=== PATIENT | male | born 1995 | race Caucasian/White ===

== ENCOUNTER 2018-12-02 21:39 | Emergency (ER) | payer OTHER ==
[~2018-12-02] VITALS: Ht 193 cm; Wt 163.3 kg
[2018-12-02] MEDS ORDERED: PENICILLIN G BENZATHINE 2.4 MMU/4 ML DISP.SYRIN IM ONE ×2 (21:58→22:00)
[2018-12-02] MEDS ORDERED: DEXAMETHASONE SOD PHOSPHATE 4 MG INJ ONE (21:58)
[2018-12-02] MEDS ORDERED: DEXAMETHASONE SOD PHOSPHATE 4 MG INJ IM ONE (22:00)
[2018-12-02 22:09] VITALS: BP 140/90
--- NOTE | 2018-12-02 22:09 | NUR ---
Patient discharged to home in stable conditon. Written and verbal after care instructions given. Patient verbalizes understanding of instructions. WALKED OUT OF ER WITH NO DISTRESS NOTED
== END 2018-12-02 22:15 | disposition home or self-care (01) ==
LOC: ER 21:40
DX: J03.90 Acute tonsillitis, unspecified (principal)
CPT/HCPCS: 96372 ×2; 99283; J1100; A4663